=== PATIENT | male | born 1960 | race Caucasian/White ===

== ENCOUNTER → 2017-01-22 | Outpatient (CLI) | payer OTHER | LOC: BMCIMAGING 10:52 | PROVIDERS: ATTEND Internal Medicine Endocrinology, Diabetes & Metabolism | DX: E04.2 Nontoxic multinodular goiter (principal) | CPT/HCPCS: 76536-PO ==

== ENCOUNTER 2018-11-01 17:43 | Day surgery (SDC) | payer OTHER ==
--- NOTE | 2018-11-01 18:45 | PDANEPAE ---
ANE History of Present Illness 58 yo male with R ureteral stone for stent placement. ANE Past Medical History - Cardiovascular History Hx Hypertension: No Hx Arrhythmias: No Hx Chest Pain: No Hx Coronary Artery / Peripheral Vascular Disease: No Hx CHF / Valvular Disease: No Hx Palpitations: No - Pulmonary History Hx COPD: No Hx Asthma/Reactive Airway Disease: No Hx Recent Upper Respiratory Infection: No Hx Oxygen in Use at Home: No Hx Sleep Apnea: No Pulmonary History Comment: CURRENT PERSISTENT COUGH - Neurologic History Hx Cerebrovascular Accident: No Hx Seizures: No Hx Dementia: No - Endocrine History Hx Diabetes: No Hypothyroid: No Hyperthyroid: No Obesity: no - Renal History Hx Renal Disorders: Yes Renal History Comment: KIDNEY STONES - Liver History Hx Hepatic Disorders: Yes Hepatic History Comment: GALL STONES - Neurological & Psychiatric Hx Hx Neurological and Psychiatric Disorders: No - Cancer History Hx Cancer: No - Congenital Disorder History Hx Congenital Disorders: No - GI History Hx Gastrointestinal Disorders: Yes Gastrointestinal History Comment: Crohn's disease on Humira - Other Health History Other Health History: NEG - Chronic Pain History Chronic Pain: No - Surgical History Prior Surgeries: GALL STONES X2. KIDNEY STONES. KNEE R. L FOOT ANE Review of Systems Review of Systems: - Systems Gastrointestinal: Reports: vomitting, nausea Genitourinary: Reports: flank pain ANE Patient History - Allergies Allergies/Adverse Reactions: No Known Allergies Allergy (Unverified 09/27/10 16:48) - NPO status NPO Since - Liquids (Date): 11/01/18 NPO Since - Liquids (Time): 13:00 NPO Since - Solids (Date): 11/01/18 NPO Since - Solids (Time): 13:00 (watermelon and crackers) - Anes Hx Anes Hx: no prior problems - Smoking Hx Smoking Status: Former smoker - Family Anes Hx Family Anes Hx: neg - N/A Family Hx Anesthesia Complications: NEG ANE Labs/Vital Signs - Vital Signs Blood Pressure: 124/81 Heart Rate: 81 Respiratory Rate: 14 O2 Sat (%): 95 Height: 183 cm Weight: 102 kg (225# per pt) ANE Physical Exam - Airway Neck exam: FROM Mallampati Score: Class 2 Mouth exam: poor dentition (missing some teeth) - Pulmonary Pulmonary: clear to auscultation - Cardiovascular Cardiovascular: regular rate and rhythym - ASA Status ASA Status: II ANE Anesthesia Plan Anesthesia Plan: GA w LMA
[2018-11-01] MEDS ORDERED: LIDOCAINE 2% JELLY 20 ML (UROJECT) ONE (18:50)
[2018-11-01] MEDS ORDERED: IOPAMIDOL (ISOVUE-M 300) 15 ML VIAL ONE (18:51)
[2018-11-01] MEDS ORDERED: OPIUM/BELLADONNA ALKALO SUPP PR ONE (18:51)
[2018-11-01] MEDS ORDERED: MIDAZOLAM 2 MG/2 ML VIAL IVP ONE (19:17)
[2018-11-01] MEDS ORDERED: PROPOFOL 200 MG/20 ML VIAL ONE (19:21)
[2018-11-01] MEDS ORDERED: DEXAMETHASONE 4 MG/ML VIAL ONE (19:21)
[2018-11-01] MEDS ORDERED: levOFLOXACIN 500 MG/DEXTROSE 100 ML IV ONE (19:21)
[2018-11-01] MEDS ORDERED: fentaNYL 100 MCG/2 ML INJ ONE (19:21)
[2018-11-01] MEDS ORDERED: levOFLOXACIN 500 MG/DEXTROSE/100 ML BAG IV ONE (19:22)
--- NOTE | 2018-11-01 19:22 | PDHPUP ---
History & Physical Update H&P update statement: This history and physical update is based on an assessment of the patient which was completed after admission or registration (within 24 hours), but prior to the surgery/procedure. H&P update: H&P reviewed & patient examined, no change in patient's condition since H&P completed
[2018-11-01] MEDS ORDERED: GLYCOPYRROLATE 0.2 MG/1 ML VIAL ONE (19:33)
[2018-11-01] MEDS ORDERED: RANITIDINE 50 MG/2 ML VIAL ONE (19:33)
[2018-11-01] MEDS ORDERED: ONDANSETRON 4 MG/2 ML VIAL ONE (19:56)
[2018-11-01] MEDS ORDERED: oxyCODONE IR 5 MG TAB PO PRN (20:03)
[2018-11-01] MEDS ORDERED: NALOXONE HCL 0.4 MG/ML INJ IVP PRN (20:03)
[2018-11-01] MEDS ORDERED: fentaNYL 100 MCG/2 ML INJ IVP PRN (20:03)
--- NOTE | 2018-11-01 20:13 | POSTANESTH ---
Post Anesthetic Evaluation Cardiovascular Status: Normal, Stable Respiratory Status: Normal, Stable Level of Consciousness/Mental Status: Can Participate in Eval Pain Control: Adequate, Prn Tx Ordered Nausea/Vomiting Control: Adequate, Prn Tx Ordered Complications Possibly Related to Anesthesia: None Noted
[2018-11-01 21:25] VITALS: BP 105/72
--- NOTE | 2018-11-01 21:30 | POSTOPPROG ---
Post Op Note Date of Operation: 11/01/18 Surgeon: Elizabeth Ferris Anesthesia: LMA Pre-op Diagnosis: Right ureteral stone, obstruction, fever Post-op Diagnosis: same Indication: Right ureteral stone, obstruction, fever Procedure: cystoscopy, R ureteral stent placement, fluoro Inf/Abcess present in the surg proc area at time of surgery?: No EBL: Minimal
[2018-11-01] MEDS ORDERED: PHENAZOPYRIDINE HCL 200 MG TAB ONE (21:33)
[2018-11-01] MEDS ORDERED: PHENAZOPYRIDINE HCL 200 MG TAB PO ONE (21:45)
--- NOTE | 2018-11-02 05:54 | GOP ---
DATE OF OPERATION: 11/01/2018 SURGEON: Elizabeth Ferris MD PREOPERATIVE DIAGNOSIS: Right ureteral stone obstruction and fevers. POSTOPERATIVE DIAGNOSIS: Right ureteral stone obstruction and fevers. PROCEDURE PERFORMED: Cystoscopy, right stent placement. FINDINGS: No bladder abnormality. Sediment draining from the kidney once wire manipulation and sten t was placed. Culture was sent. Stent placed in good position. INDICATIONS: The patient presented to my office today with right flank pain, fevers, nausea, and vom iting, and this is secondary to obstructing right ureteral stone, which was seen on CT scan a few day s ago. He desired treatment of the stone, but due to the potential infection and the fevers, a stent was most appropriate. The rationale, risks, and benefits of and stent were discussed, including ble eding, infection, pain, injury to the urethra, the bladder, right greater ureter, inability to place the stent, need for percutaneous nephrostomy tube and for subsequent procedures to treat the stone a t a later date. He understood these risks and agreed to proceed. DESCRIPTION OF PROCEDURE: The patient was taken back to the cystoscopy suite, placed on the cystosco py table in supine position. General anesthesia induced without complication. Time-out performed an d core measures satisfied, including placement of a Anuel Hugger, SCDs, and administration of Levaquin antibiotics. He was brought to the OR table, placed in dorsal lithotomy position. All pressure poi nts padded. Genitalia draped and prepped in a standard surgical fashion. Rigid cystoscope easily cannulated the urethral meatus and was advanced atraumatically into the bladd er. Hassan cystoscopy performed and there was no stones in the bladder and no lesions, cellules, trabec ulations, or abnormalities. The right ureteral orifice was identified. A wire was placed with cysto scopic and fluoroscopic guidance, and then, a 6-[place] multivariable stent was placed over the wire w ith a nice curl in the renal pelvis and a nice curl in the bladder. This was done with cystoscopic a nd fluoroscopic guidance. When I did place the stent and the wire, there was some sediment that was effluxed out of the right collecting system. I did send a urine culture in case this indicated any i nfection, but he remained stable and did well during the entire procedure. At this point, his bladder was emptied. Belladonna and opium placed per rectum and lidocaine jelly w as placed per urethra. He was awoken from anesthesia and transferred to PACU in good condition. /[id number]/MODL
== END 2018-11-01 22:05 | disposition home or self-care (01) ==
LOC: FSGY 17:43
PROVIDERS: ATTEND Urology
PROC: 0T768DZ Dilation of Right Ureter with Intraluminal Device, Via Natural or Artificial Opening Endoscopic (ICD-10-PCS; principal; 2018-11-01 19:30)
DX: N20.1 Calculus of ureter (principal); R50.9 Fever, unspecified
CPT/HCPCS: 52332; C1758; C1769; C2625; J1100; J1956; J2250; J2405; J2704; J2780; J3010; Q9967